=== PATIENT | female | born 1970 | race Caucasian/White ===

== ENCOUNTER 2018-05-03 09:38 | Emergency (ER) | payer MEDICAID ==
[~2018-05-03] VITALS: Ht 152.4 cm; Wt 69.0 kg
[2018-05-03] MEDS ORDERED: METF-815 PO (09:47)
[2018-05-03] MEDS ORDERED: ONDANSETRON 4MG ODT PO STA (10:34)
[2018-05-03] MEDS ORDERED: DICYCLOMINE 10 MG/5 ML ORAL SYR PO STA (10:34)
[2018-05-03] MEDS ORDERED: MAGNESIUM/ALUMINUM HYDROXIDE/SIMETHICONE 30ML UDC PO ONE (10:45)
[2018-05-03] MEDS ORDERED: FAMOTIDINE 20MG TABLET PO ONE (10:45)
[2018-05-03 11:09] LABS: EOSINOPHILS % 3.8 % (0.0-5.0); HEMATOCRIT. 38.8 % (36.0-48.0); HEMOGLOBIN. 12.8 g/dL (12.0-16.0); LYMPHOCYTES % 24.7 % (20.0-50.0); MEAN CORPUSCULAR HEMOGLOBIN 27.6 pg (28.0-32.0); MEAN CORPUSCULAR VOLUME 83.4 fL (81.0-99.0); MEAN PLATELET VOLUME 8.6 fl (7.4-10.4); MONOCYTES % 6.7 % (2.0-8.0); NEUTROPHILS % 63.8 % (40.0-76.0); PLATELET 279 x1000/uL (130-400); RED BLOOD CELL COUNT 4.65 mill/uL (4.2-5.4); RED CELL DISTRIBUTION WIDTH 13.4 % (11.6-14.6)
[2018-05-03 11:13] LABS: CHLORIDE 102 mEq/L (98-107); PROTHROMBIN TIME 10.7 sec (9.4-11.6)
[2018-05-03 11:23] LABS: CLARITY URINE CLEAR (CLEAR); COLOR URINE YELLOW (YELLOW); KETONES URINE NEGATIVE (NEGATIVE); LEUKOCYTE ESTERASE URINE TRACE (NEGATIVE); NITRITE URINE NEGATIVE (NEGATIVE); OCCULT BLOOD URINE NEGATIVE (NEGATIVE); PROTEIN URINE NEGATIVE (NEGATIVE); SPECIFIC GRAVITY URINE 1.015 (1.005-1.030); UROBILINOGEN URINE 0.2 E.U./dL (0.2-1.0)
[2018-05-03 12:36] VITALS: BP 118/63
== END 2018-05-03 13:00 | disposition home or self-care (01) ==
LOC: ER 09:43
DX: N39.0 Urinary tract infection, site not specified (principal); R10.9 Unspecified abdominal pain; K76.0 Fatty (change of) liver, not elsewhere classified; E11.9 Type 2 diabetes mellitus without complications; Z87.442 Personal history of urinary calculi
CPT/HCPCS: 36415; 74176; 80053; 81003; 81025; 83690; 85025; 85610; 99285; Q0162

== ENCOUNTER 2018-12-15 10:24 | Emergency (ER) | payer MEDICAID ==
[~2018-12-15] VITALS: Ht 162.6 cm; Wt 68.0 kg
[~2018-12-15 10:24] MED LIST: METF-815 PO
[2018-12-15] MEDS ORDERED: PREDNISONE 20MG TABLET PO STA (15:17)
[2018-12-15] MEDS ORDERED: ALBUTEROL (0.083%) 2.5MG/3ML NEB HHN STA (15:17)
[2018-12-15] MEDS ORDERED: KETOROLAC 15MG/ML VIAL IM ONE (16:15)
[2018-12-15 16:41] VITALS: BP 102/67
== END 2018-12-15 16:42 | disposition home or self-care (01) ==
LOC: ER 10:55
DX: J06.9 Acute upper respiratory infection, unspecified (principal); R49.0 Dysphonia; E11.9 Type 2 diabetes mellitus without complications; N20.0 Calculus of kidney; Z98.890 Other specified postprocedural states; Z79.899 Other long term (current) drug therapy
CPT/HCPCS: 71045; 99283; J1885; J7512; Z7610